=== PATIENT | male | born 1960 | race Caucasian/White ===

== ENCOUNTER → 2019-06-16 14:55 | Outpatient (BNVA) | payer OTHER, SELFPAY | PROVIDERS: Family Provider Internal Medicine; Referring Provider Family Medicine; Visit Provider Orthopaedic Surgery | DX: M25.522 Pain in left elbow (principal); M70.22 Olecranon bursitis, left elbow | CPT/HCPCS: 73080 ==

== ENCOUNTER → 2021-02-28 13:40 | Outpatient (BNVA) | payer OTHER, SELFPAY | PROVIDERS: Visit Provider Nurse Practitioner Family | DX: Z20.822 Contact with and (suspected) exposure to COVID-19 (principal) | CPT/HCPCS: 87426 ==

== ENCOUNTER → 2021-04-19 15:32 | Outpatient (BNVA) | payer OTHER, SELFPAY | PROVIDERS: Visit Provider Nurse Practitioner Family | DX: Z20.822 Contact with and (suspected) exposure to COVID-19 (principal) | CPT/HCPCS: 87635 ==